=== PATIENT | male | born 1960 | race Caucasian/White ===

== ENCOUNTER → 2018-01-18 | Outpatient (CLI) | payer OTHER ==
[~2018-01-18] MED LIST: ALEVE 220MG220 MG PO; AMBIEN 10MG10 M1 PO; MULTIPLE VITAMI1 CAP PO
== END ==
LOC: COL.RAD 10:03
DX: S46.012A Strain of muscle(s) and tendon(s) of the rotator cuff of left shoulder, initial encounter (principal); M89.8X1 Other specified disorders of bone, shoulder; M19.012 Primary osteoarthritis, left shoulder; M25.412 Effusion, left shoulder; M24.012 Loose body in left shoulder; M75.92 Shoulder lesion, unspecified, left shoulder; M75.22 Bicipital tendinitis, left shoulder; S46.812A Strain of other muscles, fascia and tendons at shoulder and upper arm level, left arm, initial encounter

== ENCOUNTER → 2018-07-11 | Outpatient (CLI) | payer OTHER | LOC: COL.RAD 09:15 | DX: M99.71 Connective tissue and disc stenosis of intervertebral foramina of cervical region (principal); M50.13 Cervical disc disorder with radiculopathy, cervicothoracic region ==

== ENCOUNTER → 2018-10-04 | Outpatient (CLI) | payer OTHER | LOC: COL.RAD 06:49 | DX: M50.21 Other cervical disc displacement, high cervical region (principal); S13.150A Subluxation of C4/C5 cervical vertebrae, initial encounter; S13.180A Subluxation of C7/T1 cervical vertebrae, initial encounter ==

== ENCOUNTER → 2018-10-28 | Outpatient (CLI) | payer OTHER | LOC: COL.RAD 10:17 | DX: S46.812A Strain of other muscles, fascia and tendons at shoulder and upper arm level, left arm, initial encounter (principal); M75.122 Complete rotator cuff tear or rupture of left shoulder, not specified as traumatic; Z98.890 Other specified postprocedural states | CPT/HCPCS: A9585; Q9967 ==

== ENCOUNTER 2020-10-15 20:40 | Emergency (ER) | payer BC ==
[~2020-10-15] VITALS: Ht 167.6 cm; Wt 97.7 kg
[2020-10-15 21:33] LABS: BASO % 0.5 % (0.0-2.0); EOS # 0.2 (0.0-0.7); EOS % 2.4 % (0-4.0); GRAN # 4.9 (1.4-6.5); GRAN % 59.8 % (42.2-75.2); HEMATOCRIT 43.1 % (42.0-52.0); HEMOGLOBIN 15.4 g/dl (13.5-18.0); LYMPH # 2.3 (1.2-3.4); LYMPH % 28.3 % (20.0-51.0); MEAN CELL VOLUME 92 fl (80.0-100.0); MEAN CORPUSCULAR HEMOGLOBIN 33 pg (27.0-31.0); MEAN CORPUSCULAR HGB CONC 36 g/dl (33.0-37.0); MEAN PLATELET VOLUME 9.3 fl (7.4-10.4); MONO # 0.7 (0.1-0.6); MONO % 8.5 % (1.7-9.3); PLATELET COUNT 257 K/mm3 (130-400); RED BLOOD COUNT 4.69 M/mm3 (4.20-5.60); REDCELL DISTRIBUTION WIDTH-CV 12.1 % (11.5-14.5)
[2020-10-15 21:37] LABS: INR 1.1 (0.8-3.0); PROTHROMBIN TIME 11.8 SECONDS (9.7-12.8)
[2020-10-15 21:39] LABS: PARTIAL THROMBOPLASTIN TIME 30.2 SECONDS (26.0-37.0)
[2020-10-15 21:40] LABS: ALBUMIN 4.1 gm/dL (3.5-5.0); BILIRUBIN,TOTAL 0.7 mg/dL (0.0-1.0); CALCIUM 8.9 mg/dL (8.4-10.2); CREATININE, serum 0.85 (0.66-1.25); POTASSIUM 3.8 mmol/L (3.4-5.0)
[2020-10-16] MEDS ORDERED: NORCO 325 MG-51 TAB PO (00:10)
[2020-10-16 00:15] VITALS: BP 152/94; PULSE 115
== END 2020-10-16 00:30 | disposition home or self-care (01) ==
LOC: COL.ER 20:40
PROVIDERS: Emergency Medicine
DX: S12.601A Unspecified nondisplaced fracture of seventh cervical vertebra, initial encounter for closed fracture (principal); S01.411A Laceration without foreign body of right cheek and temporomandibular area, initial encounter; S01.01XA Laceration without foreign body of scalp, initial encounter; S06.0X0A Concussion without loss of consciousness, initial encounter; R20.2 Paresthesia of skin; V49.40XA Driver injured in collision with unspecified motor vehicles in traffic accident, initial encounter; Y92.410 Unspecified street and highway as the place of occurrence of the external cause
CPT/HCPCS: J2405; J3010

== ENCOUNTER → 2024-02-21 | Outpatient (CLI) | payer BC ==
[~2024-02-21] MED LIST changes: +BD ALCOHOL1 SWA MC; +CONTROL SOLUTI1 EAC1 MC; +ELIQUIS 5MG PO; +FREESTYLE PREC1 EAC5 MC; +GLUCAGON EMERGEN1 M1 SQ; +GLUCOPHAGE500 MG/TAB PO; +GLUCOSE TEST ST1 DEV MC; +GLUTOSE 1515 GM PO; +INSLANT SQ; +INSULIN AS100 UNIT/3 SQ; +INSULIN PEN NE1 EAC1 MC; +LANCETS MC; +LANTUS SOLOS100 U/ML SQ; +NORCO 325 MG-51 TAB PO; +TOPROL XL 25MG25 MG PO
== END ==
LOC: DIA.ED 10:19
DX: E11.9 Type 2 diabetes mellitus without complications (principal); Z79.4 Long term (current) use of insulin
CPT/HCPCS: G0108

== ENCOUNTER 2024-06-27 05:46 | Day surgery (SDC) | payer BC ==
[~2024-06-27] VITALS: Ht 175.3 cm; Wt 90.5 kg
[~2024-06-27 05:46] MED LIST changes: +LR 1,000 ML IV SCH; +Ondansetron 4 MG/2 ML VIAL IV PRN
[2024-06-27 06:18] VITALS: BP 127/83; PULSE 73; TEMP 97.2
[2024-06-27 08:00] VITALS: BP 115/73; PULSE 66; TEMP 97.3
[2024-06-27 08:15] VITALS: BP 121/73; PULSE 62
--- NOTE | 2024-06-27 13:23 | NUR ---
0800- PT RETURNS FROM ENDO PROCEDURE VIA CART AND RN ASSIST TO [facility]. PT AMBULATES FROM CART TO RECLINER WITH ASSIST. MONITORS ON AND ALARMS SET. CALL LIGHT WITHIN REACH. REPORT RECEIVED. PT ALERT AND ORIENTED. PT REQUESTS FOOD AND DRINK. PT DENIES ANY PAIN OR NAUSEA. 0815- PT TAKING FOOD AND DRINK WELL. NO COMPLICATIONS NOTED. 0825- DISCHARGE INSTRUCTIONS GIVEN TO PT. ALL QUESTIONS ANSERED. PT FORGOT FOLDER IN ROOM. WILL BE MAILING [place]. 0840- PT TRANSFERRED OUT OF THE HOSPITAL VIA WHEELCHAIR AND ASSIST TO PRIVATE VEHICLE DRIVEN BY DAUGHTER.
== END 2024-06-27 08:40 | disposition home or self-care (01) ==
LOC: SDCO 05:46
DX: Z12.11 Encounter for screening for malignant neoplasm of colon (principal); D12.0 Benign neoplasm of cecum; E11.9 Type 2 diabetes mellitus without complications; Z79.84 Long term (current) use of oral hypoglycemic drugs; Z79.4 Long term (current) use of insulin
CPT/HCPCS: J2704; J7120